=== PATIENT | male | born 1975 | race Caucasian/White ===

== ENCOUNTER 2017-11-26 18:00 | Emergency (ER) | payer OTHER, MEDICAID ==
[~2017-11-26] VITALS: Ht 177.8 cm; Wt 78.9 kg
[2017-11-26 18:10] VITALS: BP 115/68
--- NOTE | 2017-11-26 18:15 | NUR ---
42/M BIB SELF C/O MURRELL, COUGH, MID chest wall pain x 3days, vomittingx 1-2hrs [employer]. med hx: Hep C, Depression. Rx: zoloft, risperidal. SKIN IS PINK/WARM/DRY; AAOX4 WITH EVEN AND STEADY GAIT; LUNGS CLEAR BL. PATIENT STATES PAIN OF 7/10 AT THIS TIME. PATIENT POSITIONED FOR COMFORT; HOB ELEVATED; BEDRAILS UP X2; BED DOWN. ER MD MADE AWARE OF PT STATUS.
--- NOTE | 2017-11-26 18:30 | NUR ---
Patient being evaluated by DR HER at bedside.
[2017-11-26 18:38] VITALS: BP 115/68
--- NOTE | 2017-11-26 18:43 | NUR ---
Patient discharged with v/s stable. Written and verbal after care instructions given and explained. Patient alert, oriented and verbalized understanding of instructions. Ambulatory with steady gait. All questions addressed prior to discharge. ID band removed. Patient advised to follow up with PMD. Rx of KYRIE SOLOMON & AVERY given. Patient educated on indication of medication including possible reaction and side effects. Opportunity to ask questions provided and answered.
== END 2017-11-26 18:43 | disposition home or self-care (01) ==
LOC: MED 18:00
DX: B34.9 Viral infection, unspecified (principal); F17.200 Nicotine dependence, unspecified, uncomplicated
CPT/HCPCS: 93005; 99283

== ENCOUNTER 2017-12-14 14:33 | Emergency (ER) | payer OTHER, MEDICAID ==
[~2017-12-14] VITALS: Ht 177.8 cm; Wt 81.6 kg
--- NOTE | 2017-12-14 14:47 | NUR ---
Patient ambulated to bed 1 at this time.
[2017-12-14 14:53] VITALS: BP 111/72
--- NOTE | 2017-12-14 14:59 | NUR ---
42 YO M BIB SELF W/ C/O N/V AND HEADACHE SINCE 11AM THIS MORNING, DENIES ABD PAIN OR FEVER. PT DENIES ANY PAIN AT THIS TIME, DENIES INJURY TO HEAD/NECK. DENIES COLD/FLU SYMPTOMS. AAOX4, GCS 15, CMS INTACT. RR EVEN AND UNLABORED, LUNGS BL CLEAR. ABD SOFT, NON-TENDER. BOWEL SOUNDS ACTIVE X 4 QUADRANTS. AMBULATORY W/ STEADY GAIT. ER MD NOTIFIED OF PT STATUS. PT NEEDS MET, SAFETY PRECAUTIONS IN PLACE, WILL CONTINUE TO MONITOR.
--- NOTE | 2017-12-14 16:01 | NUR ---
pt resting at this time w/ vss, rr even and unlabored and safety precautions in place while laying on hospital gurney. pt needs met. will continue to monitor.
[2017-12-14] MEDS ORDERED: IBUPROFEN 600 MG TAB PO ONE (16:40)
--- NOTE | 2017-12-14 17:07 | NUR ---
pt resting comfortably in [facility] at this time w/ vss, rr even and unlabored. safety precautions in place. will continue to monitor.
[2017-12-14 17:23] VITALS: BP 109/71
--- NOTE | 2017-12-14 17:23 | NUR ---
Patient discharged with v/s stable. Written and verbal after care instructions given and explained. Patient alert, oriented and verbalized understanding of instructions. Ambulatory with steady gait. All questions addressed prior to discharge. ID band removed. Patient advised to follow up with PMD. Rx of IBUPROFEN 600MG given. Patient educated on indication of medication including possible reaction and side effects. Opportunity to ask questions provided and answered.
== END 2017-12-14 17:23 | disposition home or self-care (01) ==
LOC: MED 14:33
DX: S93.401A Sprain of unspecified ligament of right ankle, initial encounter (principal); F17.200 Nicotine dependence, unspecified, uncomplicated; X50.1XXA Overexertion from prolonged static or awkward postures, initial encounter; Y93.68 Activity, volleyball (beach) (court); Y92.89 Other specified places as the place of occurrence of the external cause; Y99.8 Other external cause status
CPT/HCPCS: 73630; 99284